=== PATIENT | female | born 2000 | race Hispanic/Latino ===

== ENCOUNTER 2024-01-20 14:26 | Emergency (ER) | payer SELFPAY ==
[~2024-01-20] VITALS: Ht 160 cm; Wt 86.2 kg
[2024-01-20 15:27] LABS: BASOPHILS # (AUTO) 0.01 K/uL (0.00-0.20); BASOPHILS % (AUTO) 0.2 % (0.0-5.0); EOSINOPHILS # (AUTO) 0.02 K/uL (0.00-0.70); EOSINOPHILS % (AUTO) 0.3 % (0.0-8.0); HEMATOCRIT 42.9 % (36-48); IMMATURE GRANULOCYTE ABSOLUTE 0.02 K/uL (0-1); LYMPHOCYTES # (AUTO) 0.7 K/uL (1.0-4.8); LYMPHOCYTES % (AUTO) 10.8 % (21.0-51.0); MEAN CORPUSCULAR HEMOGLOBIN 31.6 pg (27.0-33.0); MEAN CORPUSCULAR HGB CONC 35.7 g/dL (32.0-36.0); MEAN CORPUSCULAR VOLUME 88.6 fL (79-99); MONOCYTES # (AUTO) 0.3 K/uL (0.1-1.0); MONOCYTES % (AUTO) 5.2 % (3.0-13.0); NEUTROPHILS # (AUTO) 5.2 K/uL (1.8-7.7); NEUTROPHILS % (AUTO) 83.2 % (40.0-77.0); PLATELET COUNT (AUTO) 214 K/uL (130-400); RED BLOOD CELL COUNT(AUTO) 4.84 MIL/uL (4.00-5.50); RED CELL DISTRIBUTION WIDTH 12.4 % (11.0-15.5); WHITE BLOOD COUNT (AUTO) 6.3 K/uL (4.8-10.8)
[2024-01-20 15:42] LABS: APPEARANCE,URINE CLEAR (CLEAR); BILIRUBIN,URINE NEGATIVE (NEGATIVE); COLOR,URINE YELLOW (YELLOW); GLUCOSE, URINE (UA) NEGATIVE (NEGATIVE); KETONES,URINE 60 mg/dL (NEGATIVE); LEUKOCYTE ESTERASE ,URINE 500 Leu/uL (NEGATIVE); NITRATE,URINE NEGATIVE (NEGATIVE); OCCULT BLOOD,URINE NEGATIVE (NEGATIVE); PROTEIN,URINE 50 mg/dL (NEGATIVE)
[2024-01-20 15:43] LABS: CREATININE 0.9 mg/dL (0.5-1.0); POTASSIUM 3.5 mmol/L (3.5-5.1)
[2024-01-20 15:47] LABS: HCG,QUALITATIVE URINE NEGATIVE (NEGATIVE)
[2024-01-20 15:48] LABS: ADD UA MICROSCOPIC YES
[2024-01-20 15:51] LABS: MUCUS,URINE MOD LPF (None Seen); SQUAMOUS EPITHELIAL CELL,UR MOD /HPF (0-2); WBC,URINE 26-50 /HPF (0-1)
[2024-01-20] MEDS: 0.9%NACL 1000ML 1,000 ML IV ONE (16:31)
[2024-01-20] MEDS ORDERED: POLY17PO4 PO (17:04)
[2024-01-20] MEDS ORDERED: CEPH500T PO (17:04)
[2024-01-20] MEDS ORDERED: ONDA-243 PO (17:04)
[2024-01-20] MEDS: ondanSETRON 4MG INJ IVP ONE (17:18)
[2024-01-20] MEDS: cefTRIAXone 1G VIAL IVPB ONE (17:21)
[2024-01-20 17:28] VITALS: BP 133/84; PULSE 78; RESP 18; TEMP 98.3; O2SAT 98
== END 2024-01-20 17:30 | disposition home or self-care (01) ==
LOC: EDH 14:26
DX: N39.0 Urinary tract infection, site not specified (principal); K59.00 Constipation, unspecified; R11.2 Nausea with vomiting, unspecified; Z79.899 Other long term (current) drug therapy
CPT/HCPCS: 99284; 96374; 96361; 96375; 80048; 83690; 85025; 87086; 81001; 81025; 36415; J7030; J0696; J2405